=== PATIENT | female | born 1980 | race Caucasian/White ===

== ENCOUNTER 2019-03-16 18:43 | Emergency (ER) | payer SELFPAY ==
[~2019-03-16] VITALS: Ht 160 cm; Wt 97.1 kg
[2019-03-16 18:47] VITALS: Ht 160 cm; Wt 97.1 kg
[2019-03-16 21:59] VITALS: BP 114/65
== END 2019-03-16 21:59 | disposition home or self-care (01) ==
LOC: ED 18:43
DX: M77.8 Other enthesopathies, not elsewhere classified (principal)